=== PATIENT | male | born 1955 | race American Indian/Alaskan Native ===

== ENCOUNTER 2018-07-21 07:19 | Day surgery (SDC) | payer BC ==
[2018-07-20 11:00] VITALS: BMI 27.3
[2018-07-21 08:16] VITALS: PULSE 53; RESP 20; TEMP 97.8; O2SAT 98
[2018-07-21] MEDS ORDERED: Lactated Ringer's 1,000 ML IV ONE (08:45)
[2018-07-21] MEDS ORDERED: Propofol 10 mg/ml Inj (20 ML) ONE ×3 (08:50→09:39)
[2018-07-21] MEDS ORDERED: Simethicone 40 mg/0.6 ml Liquid (30 ml) ONE (09:06)
[2018-07-21 10:47] VITALS: BP 124/69
== END 2018-07-21 10:51 | disposition home or self-care (01) ==
LOC: C.ENDO 07:19
PROVIDERS: ATTEND Internal Medicine Gastroenterology
DX: D12.7 Benign neoplasm of rectosigmoid junction (principal); Z12.11 Encounter for screening for malignant neoplasm of colon; D12.5 Benign neoplasm of sigmoid colon; D12.3 Benign neoplasm of transverse colon; K64.1 Second degree hemorrhoids
CPT/HCPCS: 45380; 45385; 88305; J2704; J7120